=== PATIENT | male | born 2005 | race Caucasian/White ===

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

== ENCOUNTER 2025-01-04 19:19 | Emergency (ER) | payer MEDICAID, SELFPAY ==
[2025-01-04 19:21] VITALS: BP 126/78; PULSE 82; RESP 18; TEMP 36.8; O2SAT 99; BMI 23.1
[2025-01-04 19:24] VITALS: BP 126/78; PULSE 82; RESP 18; TEMP 36.8; O2SAT 99
--- NOTE | 2025-01-04 19:30 | RAD_ITS ---
PROCEDURE: KNEE 4 OR MORE VIEWS 01/04/2025 REASON FOR EXAM: KNEE PAIN TECHNIQUE: 4 view(s) of the left knee COMPARISON: None. FINDINGS: Bones: No fracture. No suspicious bone lesion. Joints: Normal alignment. Effusion: No effusion. Soft tissues: Soft tissues are unremarkable. RAD/Knee 4 or More Views IMPRESSION: Unremarkable left knee radiographs. Reading Location: [id number]
[2025-01-04 20:21] VITALS: BP 127/73; PULSE 89; RESP 16; TEMP 36.8; O2SAT 100
[2025-01-04 21:20] VITALS: BP 120/78; PULSE 80; O2SAT 99
[2025-01-04 22:07] VITALS: TEMP 37
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
[2025-01-04] MEDS: Ibuprofen 600 MG Tablet PO (22:11)
[2025-01-04 22:12] VITALS: BP 114/72; PULSE 78; RESP 16; TEMP 36.8; O2SAT 99
== END 2025-01-04 22:15 | disposition home or self-care (01) ==
PROVIDERS: Emergency Provider Emergency Medicine; Visit Provider Emergency Medicine
DX: M23.8X2 Other internal derangements of left knee (principal); X58.XXXA Exposure to other specified factors, initial encounter; B34.9 Viral infection, unspecified; F17.290 Nicotine dependence, other tobacco product, uncomplicated
CPT/HCPCS: 73564; 87631; 99283